=== PATIENT | male | born 1965 | race Caucasian/White ===

== ENCOUNTER 2022-10-17 10:07 | Emergency (ER) | payer OTHER, BC, SELFPAY ==
[2022-10-17] VITALS (11 sets, daily range): BP systolic 126–155; BP diastolic 66–97; PULSE 97–103; RESP 14–23; TEMP 36.6; O2SAT 94–99; BMI 51.6
--- NOTE | 2022-10-17 10:31 | DI.RAD.S_ITS ---
PROCEDURE: XR KNEE RT 3V INDICATIONS: fall TECHNIQUE: 3 views of the knee were acquired. COMPARISON: None. FINDINGS: Bones: ACL replacement hardware. Moderate degenerative changes, with particular joint space narrowing in the medial compartment. No displaced fracture or dislocation. Soft tissues: Wdez-nj-bjjogloj joint effusion. IMPRESSION: Moderate degenerative changes, particularly the medial compartment. ACL replacement hardware. If there is high concern for further derangement, consider MRI evaluation. Dictated by: Ubaldo Ngo M.D. on 10/17/2022 at 11:26 Approved by: Ubaldo Ngo M.D. on 10/17/2022 at 11:27
[2022-10-17 10:49] LABS: Add Manual Diff / Slide Review NO; Basophils Absolute Auto 100 /uL (0-100); Basophils Percent Auto 0.9 % (0-2); Eosinophils Absolute Auto 100 /uL (0-450); Eosinophils Percent Auto 1.4 % (2-4); Hematocrit 46.6 % (41-53); Hemoglobin 15.9 g/dL (13.5-17.5); Lymphocytes Absolute Auto 1100 /uL (1100-4500); Lymphocytes Percent Auto 19.1 % (25-40); Mean Corpuscular HGB Conc 34.1 % (30-36); Mean Corpuscular Hemoglobin 29.5 PG (26-34); Mean Corpuscular Volume 86.5 fL (80-100); Monocytes Absolute Auto 500 /uL (0-900); Neutrophils Absolute Auto 4100 /uL (1500-7000); Neutrophils Percent Auto 70.6 % (50-75); Platelet Count 213 X10^3/uL (150-400); Red Blood Cell Count 5.38 X10^6/uL (4.5-5.9); Red Cell Distribution Width 13.1 % (11.6-14.8); White Blood Cell Count 5.8 X10^3/uL (4.5-11.0)
[2022-10-17 10:55] LABS: INR 0.9 (0.9-1.3); Prothrombin Time 10.5 SECONDS (10.1-12.7)
[2022-10-17 10:57] LABS: PTT Partial Thromboplastin Tim 31 SECONDS (26-36)
[2022-10-17 11:00] LABS: Alanine Aminotransferase 47 IU/L (<50); Albumin 4.3 g/dL (3.5-5.0); Albumin Globulin Ratio 1.2 (1.0-2.8); Alkaline Phosphatase 130 U/L (38-126); Aspartate Aminotransferase 29 IU/L (17-59); BUN Creatinine Ratio 24.5 (6-22); Bilirubin Total 1.2 mg/dL (0.2-1.3); Blood Urea Nitrogen 13 mg/dL (9-20); Calcium 8.8 mg/dL (8.4-10.2); Carbon Dioxide 21 mmol/L (22-32); Chloride 101 mmol/L (98-107); Creatine Kinase 92 U/L (55-170); Estimated Glomerular Filt Rate > 60 mL/min (>60); Globulin 3.6 g/dL (1.7-4.1); Glucose 300 mg/dL (70-100); HEMOLYSIS 37 (0-50); Lipase 65 U/L (23-300); Magnesium 1.9 mg/dL (1.6-2.3); Potassium 4.3 mmol/L (3.4-5.1); Sodium 132 mmol/L (137-145); Total Protein 7.9 g/dL (6.3-8.2)
--- NOTE | 2022-10-17 11:07 | DI.RAD.S_ITS ---
PROCEDURE: XR CHEST 1V INDICATIONS: syncope TECHNIQUE: One view of the chest was acquired. COMPARISON: None. FINDINGS: Surgical changes and devices: None. Lungs and pleura: Low lung volumes limit evaluation. No dense consolidation or pleural effusion. Possible small nodular opacity at the right lung base. Mediastinum: Heart size is at the upper limit of normal. Bones and chest wall: No suspicious bony lesions. Overlying soft tissues appear unremarkable. IMPRESSION: No acute radiographic abnormality. Low lung volumes, limiting evaluation. Tiny nodular opacity at the right lung base, possibly a granuloma. Consider surveillance imaging. Dictated by: Ubaldo Ngo M.D. on 10/17/2022 at 11:32 Approved by: Ubaldo Ngo M.D. on 10/17/2022 at 11:33
[2022-10-17 11:12] LABS: Troponin I < 0.012 ng/mL (0.01-0.034)
[2022-10-17 11:18] LABS: D Dimer 521 ng/ml (<500)
--- NOTE | 2022-10-17 11:49 | DI.CT.S_ITS ---
PROCEDURE: CT HEAD/BRAIN WO CON INDICATIONS: syncope TECHNIQUE: Noncontrast 4.5 mm thick angled axial sections acquired from the foramen magnum to the vertex, with coronal and sagittal reformats. For radiation dose reduction, the following was used: automated exposure control, adjustment of mA and/or kV according to patient size. COMPARISON: None. FINDINGS: Image quality: Excellent. CSF spaces: Basal cisterns are patent. No extra-axial fluid collections. Ventricles are normal in size and shape. Brain: No midline shift. No intracranial masses or hemorrhage. Chaparro-white matter interface is normal. Skull and face: Calvarium and visualized facial bones are intact, without suspicious lesions. Sinuses: Mild maxillary sinus mucosal thickening. The mastoids are clear. IMPRESSION: 1. No acute intracranial abnormalities. Dictated by: Zaira Sahni M.D. on 10/17/2022 at 12:37 Approved by: Zaira Sahni M.D. on 10/17/2022 at 12:37
--- NOTE | 2022-10-17 14:27 | PC.NURSE ---
I called over to [facility] where we were able to get patient an appointment at 10 AM tomorrow (0940 check in) with Dr. Pate.
[2022-10-17] MEDS: KETOROLAC 30 MG/ML VIAL IM (14:29)
--- NOTE | 2022-10-17 20:33 | ED_ITS ---
HPI - Syncope <Tye Keane PA-C - Last Filed: 10/17/22 20:48> General Chief Complaint: Syncope Stated Complaint: 'blew out right knee' Time Seen by Provider: 10/17/22 11:07 Source: patient Mode of arrival: Ambulatory History of Present Illness HPI narrative: 56-year-old male with past medical history diabetes presents to the ED status post a syncopal episode that occurred yesterday. 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 Patient states that he lost consciousness only for a few seconds and was able to stand back up and walk after. Patient states that a little while later, his right knee started becoming more painful, it is painful to bear weight and walk today. Patient denies numbness, tingling, weakness. Patient denies fever, chills, chest pain, shortness of breath, abdominal pain, nausea, vomiting, dysuria. Patient states that he was diagnosed with diabetes, however he stopped taking his medication since his medications caused too many side effects including headaches. Patient states he has had a few other syncopal episodes in the last few years, however they happen infrequently such as 2 times a year. Patient denies any cardiac history. Related Data Home Medications Medication Instructions Recorded Confirmed No Known Home Medications 10/17/22 10/17/22 Allergies Allergy/AdvReac Type Severity Reaction Status Date / Time No Known Drug Allergies Allergy Verified 10/17/22 10:29 Review of Systems <Tye Keane PA-C - Last Filed: 10/17/22 20:48> Review of Systems ROS Unobtainable: All systems reviewed & are unremarkable except as noted in HPI and below Constitutional Constitutional: Denies chills, Denies fatigue, Denies fever(s), Denies frequent falls, Denies lethargy and Denies weakness Eyes Eyes: Denies change in vision, Denies eye discharge, Denies irritation and Denies loss of vision ENT Ears, Nose, Mouth, and Throat: Denies change in voice, Denies dizziness, Denies neck pain, Denies sore throat and Denies throat swelling Cardiovascular Cardiovascular: Denies chest pain, Reports syncope, Denies irregular heart rhythm, Denies lightheadedness, Denies palpitations, Denies dyspnea, Denies dyspnea on exertion and Denies orthopnea Respiratory Respiratory: Denies cough, Denies dyspnea, Denies dyspnea on exertion and Denies wheezing Gastrointestinal Gastrointestinal: Denies abdominal pain, Denies change in bowel habits, Denies diarrhea, Denies nausea and Denies vomiting Genitourinary Genitourinary: Denies hematuria, Denies flank pain, Denies urinary incontinence and Denies urinary urgency Musculoskeletal Musculoskeletal: Denies back pain, Denies muscle weakness, Denies neck pain, Denies numbness and Denies tingling Comments: Right Knee pain Integumentary/Breasts Skin/Breast: Denies pruritus, Denies erythema, Denies rash and Denies wounds Neurologic Neurologic: Denies behavioral changes, Denies confusion, Denies dizziness, Reports syncope, Denies frequent falls, Denies loss of vision, Denies numbness, Denies tingling and Denies weakness Psychiatric Psychiatric: Denies anxiety, Denies behavioral changes, Denies confusion, Denies depression, Denies homicidal ideation and Denies suicidal ideation Endocrine Endocrine: Denies fatigue, Denies flushing and Denies palpitations Hematologic/Lymphatic Hematologic/Lymphatic: Denies easy bruising Allergic/Immunologic Allergic/Immunologic: Denies urticaria, Denies throat swelling and Denies wheezing Patient History <Tye Keane PA-C - Last Filed: 10/17/22 20:48> Social History Smoking Status: Never smoker Smoking Status: Never smoker alcohol intake frequency: 0-2 drinks per day Substance Use Type: marijuana Exam <Tye Keane PA-C - Last Filed: 10/17/22 20:48> Narrative Exam Narrative: Const General:?cooperative, healthy appearing and comfortable [facility] Head:?normal to inspection Ears:?hearing grossly normal bilaterally Nose:?external nose normal Face and sinus:?normal facial exam and sinuses nontender Mouth:?oral mucosae normal Throat:?posterior oropharynx normal Eyes General:?appearance normal, both eyes and all related structures Neck Neck:?normal visual inspection and no lymphadenopathy noted Resp Effort & Inspection:?normal respiratory effort Auscultation:?clear to auscultation bilaterally Cardio Rate:?regular rate Rhythm:?regular rhythm Musculoskeletal Right knee appears mildly swollen, tender to touch. No erythema or deformities. There is full range of motion. Strength and sensation is intact. Patient is neurovascularly intact. Neuro General:?patient alert, patient awake and patient oriented x3 Initial Vital Signs Initial Vital Signs: Vital Signs Temperature 97.8 F 10/17/22 10:24 Pulse Rate 103 H 10/17/22 10:24 Respiratory Rate 18 10/17/22 10:24 Blood Pressure 155/97 H 10/17/22 10:24 Pulse Oximetry 95 10/17/22 10:24 Oxygen Delivery Method Room Air 10/17/22 10:24 <Samra Graham DO - Last Filed: 10/18/22 07:44> Initial Vital Signs Initial Vital Signs: Vital Signs Temperature 97.8 F 10/17/22 10:24 Pulse Rate 103 H 10/17/22 10:24 Respiratory Rate 18 10/17/22 10:24 Blood Pressure 155/97 H 10/17/22 10:24 Pulse Oximetry 95 10/17/22 10:24 Oxygen Delivery Method Room Air 10/17/22 10:24 Course <Tye Keane PA-C - Last Filed: 10/17/22 20:48> Orders Ordered: Discontinued Medications Aspirin (Aspirin 81 Mg Chew Tab) 324 mg PO NOW ONE Stop: 10/17/22 10:32 Last Admin: 10/17/22 12:39 Dose: Not Given Documented By: ISABELLA Ketorolac Tromethamine (Ketorolac 30 Mg/Ml Vial) 30 mg IM NOW ONE Stop: 10/17/22 14:21 Last Admin: 10/17/22 14:29 Dose: 30 mg Documented By: ERROL Vital Signs Vital signs: Vital Signs - 8 hr 10/17/22 12:35 10/17/22 12:36 10/17/22 12:36 Pulse Rate 101 H 100 H Respiratory Rate 21 17 Blood Pressure 146/90 H Pulse Oximetry 96 96 Oxygen Delivery Method 10/17/22 13:00 10/17/22 13:00 10/17/22 13:30 Pulse Rate 98 H Respiratory Rate 23 Blood Pressure 143/88 H 140/86 Pulse Oximetry 95 Oxygen Delivery Method 10/17/22 13:30 10/17/22 14:00 10/17/22 14:00 Pulse Rate 98 H 97 H Respiratory Rate 14 18 Blood Pressure 141/91 H Pulse Oximetry 96 98 Oxygen Delivery Method Room Air 10/17/22 14:30 10/17/22 14:30 Pulse Rate 101 H Respiratory Rate 20 Blood Pressure 153/94 H Pulse Oximetry 96 Oxygen Delivery Method Room Air <Samra Graham DO - Last Filed: 10/18/22 07:44> Orders Ordered: Discontinued Medications Aspirin (Aspirin 81 Mg Chew Tab) 324 mg PO NOW ONE Stop: 10/17/22 10:32 Last Admin: 10/17/22 12:39 Dose: Not Given Documented By: ISABELLA Ketorolac Tromethamine (Ketorolac 30 Mg/Ml Vial) 30 mg IM NOW ONE Stop: 10/17/22 14:21 Last Admin: 10/17/22 14:29 Dose: 30 mg Documented By: ERROL Vital Signs Vital signs: Vital Signs - 8 hr 10/17/22 12:35 10/17/22 12:36 10/17/22 12:36 Pulse Rate 101 H 100 H Respiratory Rate 21 17 Blood Pressure 146/90 H Pulse Oximetry 96 96 Oxygen Delivery Method 10/17/22 13:00 10/17/22 13:00 10/17/22 13:30 Pulse Rate 98 H Respiratory Rate 23 Blood Pressure 143/88 H 140/86 Pulse Oximetry 95 Oxygen Delivery Method 10/17/22 13:30 10/17/22 14:00 10/17/22 14:00 Pulse Rate 98 H 97 H Respiratory Rate 14 18 Blood Pressure 141/91 H Pulse Oximetry 96 98 Oxygen Delivery Method Room Air 10/17/22 14:30 10/17/22 14:30 Pulse Rate 101 H Respiratory Rate 20 Blood Pressure 153/94 H Pulse Oximetry 96 Oxygen Delivery Method Room Air MDM - Syncope <Tye Keane PA-C - Last Filed: 10/17/22 20:48> Lab Data 10/17/22 10:40 10/17/22 10:40 Labs: Lab Results 10/17/22 10/17/22 10/17/22 Range/Units 10:40 10:40 10:40 WBC 5.8 (4.5-11.0) X10^3/uL RBC 5.38 (4.5-5.9) X10^6/uL Hgb 15.9 (13.5-17.5) g/dL Hct 46.6 (41-53) % MCV 86.5 (80-100) fL MCH 29.5 (26-34) PG MCHC 34.1 (30-36) % RDW 13.1 (11.6-14.8) % Plt Count 213 (150-400) X10^3/uL Neut % (Auto) 70.6 (50-75) % Lymph % (Auto) 19.1 L (25-40) % [place] % (Auto) 8.0 (3-14) % Eos % (Auto) 1.4 L (2-4) % Baso % (Auto) 0.9 (0-2) % Neut # (Auto) 4100 (2658-2488) /uL Lymph # (Auto) 1100 (4837-7499) /uL [place] # (Auto) 500 (0-900) /uL Eos # (Auto) 100 (0-450) /uL Baso # (Auto) 100 (0-100) /uL PT 10.5 (10.1-12.7) SECONDS INR 0.9 (0.9-1.3) APTT 31 (26-36) SECONDS D-Dimer (<500) ng/ml Sodium 132 L (137-145) mmol/L Potassium 4.3 (3.4-5.1) mmol/L Chloride 101 (98-107) mmol/L Carbon Dioxide 21 L (22-32) mmol/L BUN 13 (9-20) mg/dL Creatinine 0.53 L (0.66-1.25) mg/dL Estimated GFR > 60 (>60) mL/min BUN/Creatinine Ratio 24.5 H (6-22) Glucose 300 H (70-100) mg/dL Calcium 8.8 (8.4-10.2) mg/dL Magnesium 1.9 (1.6-2.3) mg/dL Total Bilirubin 1.2 (0.2-1.3) mg/dL AST 29 (17-59) IU/L ALT 47 (<50) IU/L Alkaline Phosphatase 130 H (38-126) U/L Total Creatine Kinase 92 (55-170) U/L CK-MB (CK-2) TNP CK-MB (CK-2) Rel Index TNP Troponin I < 0.012 (0.01-0.034) ng/mL Total Protein 7.9 (6.3-8.2) g/dL Albumin 4.3 (3.5-5.0) g/dL Globulin 3.6 (1.7-4.1) g/dL Albumin/Globulin Ratio 1.2 (1.0-2.8) Lipase 65 (23-300) U/L 10/17/22 Range/Units 11:07 WBC (4.5-11.0) X10^3/uL RBC (4.5-5.9) X10^6/uL Hgb (13.5-17.5) g/dL Hct (41-53) % MCV (80-100) fL MCH (26-34) PG MCHC (30-36) % RDW (11.6-14.8) % Plt Count (150-400) X10^3/uL Neut % (Auto) (50-75) % Lymph % (Auto) (25-40) % [place] % (Auto) (3-14) % Eos % (Auto) (2-4) % Baso % (Auto) (0-2) % Neut # (Auto) (6753-8392) /uL Lymph # (Auto) (3845-7975) /uL [place] # (Auto) (0-900) /uL Eos # (Auto) (0-450) /uL Baso # (Auto) (0-100) /uL PT (10.1-12.7) SECONDS INR (0.9-1.3) APTT (26-36) SECONDS D-Dimer 521 H (<500) ng/ml Sodium (137-145) mmol/L Potassium (3.4-5.1) mmol/L Chloride (98-107) mmol/L Carbon Dioxide (22-32) mmol/L BUN (9-20) mg/dL Creatinine (0.66-1.25) mg/dL Estimated GFR (>60) mL/min BUN/Creatinine Ratio (6-22) Glucose (70-100) mg/dL Calcium (8.4-10.2) mg/dL Magnesium (1.6-2.3) mg/dL Total Bilirubin (0.2-1.3) mg/dL AST (17-59) IU/L ALT (<50) IU/L Alkaline Phosphatase (38-126) U/L Total Creatine Kinase (55-170) U/L CK-MB (CK-2) CK-MB (CK-2) Rel Index Troponin I (0.01-0.034) ng/mL Total Protein (6.3-8.2) g/dL Albumin (3.5-5.0) g/dL Globulin (1.7-4.1) g/dL Albumin/Globulin Ratio (1.0-2.8) Lipase (23-300) U/L Urine Dip Bedside Urine Glucose 1000 mg/dl Bedside Urine Bilirubin - Negative Bedside Urine Ketone +++ 80 Urine Specific [place] 1.020 Bedside Urine Occult Blood - Negative Bedside Urine pH 5.5 Bedside Urine Protein - Negative Bedside Urine Urobilinogen - Negative Bedside Urine Nitrite - Negative Bedside Urine Leukocytes - Negative Esterase MDM Narrative Medical decision making narrative: 56-year-old male with past medical history diabetes presents to the ED status post a syncopal episode that occurred yesterday. Concern for ACS versus arrhythmias versus vasovagal syncope versus fracture/dislocation versus intracranial bleeds versus PE versus other. Will obtain labs, troponin, EKG, chest x-ray, D-dimer, knee x-ray. Will give ketorolac for pain. Will reassess. X-ray with no fracture/dislocation. There is some nnbf-wi-[id number] joint effusion. CT head without acute findings. Chest x-ray shows an incidental finding of a tiny nodular opacity of the right lung base, possibly a granuloma but no other acute findings. Glucose 300. Remainder of the workup within ministerio l limits. Discussed findings with patient. Recommend continued use of ibuprofen or Tylenol, heat packs, Haroldo wraps for pain. Patient agrees to seek further evaluation and treatment for his blood sugars. An appointment was made for him at [address], appointment for 9:[address] Pate. ED return precautions were discussed with patient. Patient verbalized understanding. Medical records reviewed: Yes <Samra Graham, DO - Last Filed: 10/18/22 07:44> Lab Data Labs: Lab Results 10/17/22 10/17/22 10/17/22 Range/Units 10:40 10:40 10:40 WBC 5.8 (4.5-11.0) X10^3/uL RBC 5.38 (4.5-5.9) X10^6/uL Hgb 15.9 (13.5-17.5) g/dL Hct 46.6 (41-53) % MCV 86.5 (80-100) fL MCH 29.5 (26-34) PG MCHC 34.1 (30-36) % RDW 13.1 (11.6-14.8) % Plt Count 213 (150-400) X10^3/uL Neut % (Auto) 70.6 (50-75) % Lymph % (Auto) 19.1 L (25-40) % [place] % (Auto) 8.0 (3-14) % Eos % (Auto) 1.4 L (2-4) % Baso % (Auto) 0.9 (0-2) % Neut # (Auto) 4100 (1719-4962) /uL Lymph # (Auto) 1100 (0212-4151) /uL [place] # (Auto) 500 (0-900) /uL Eos # (Auto) 100 (0-450) /uL Baso # (Auto) 100 (0-100) /uL PT 10.5 (10.1-12.7) SECONDS INR 0.9 (0.9-1.3) APTT 31 (26-36) SECONDS D-Dimer (<500) ng/ml Sodium 132 L (137-145) mmol/L Potassium 4.3 (3.4-5.1) mmol/L Chloride 101 (98-107) mmol/L Carbon Dioxide 21 L (22-32) mmol/L BUN 13 (9-20) mg/dL Creatinine 0.53 L (0.66-1.25) mg/dL Estimated GFR > 60 (>60) mL/min BUN/Creatinine Ratio 24.5 H (6-22) Glucose 300 H (70-100) mg/dL Calcium 8.8 (8.4-10.2) mg/dL Magnesium 1.9 (1.6-2.3) mg/dL Total Bilirubin 1.2 (0.2-1.3) mg/dL AST 29 (17-59) IU/L ALT 47 (<50) IU/L Alkaline Phosphatase 130 H (38-126) U/L Total Creatine Kinase 92 (55-170) U/L CK-MB (CK-2) TNP CK-MB (CK-2) Rel Index TNP Troponin I < 0.012 (0.01-0.034) ng/mL Total Protein 7.9 (6.3-8.2) g/dL Albumin 4.3 (3.5-5.0) g/dL Globulin 3.6 (1.7-4.1) g/dL Albumin/Globulin Ratio 1.2 (1.0-2.8) Lipase 65 (23-300) U/L 10/17/22 Range/Units 11:07 WBC (4.5-11.0) X10^3/uL RBC (4.5-5.9) X10^6/uL Hgb (13.5-17.5) g/dL Hct (41-53) % MCV (80-100) fL MCH (26-34) PG MCHC (30-36) % RDW (11.6-14.8) % Plt Count (150-400) X10^3/uL Neut % (Auto) (50-75) % Lymph % (Auto) (25-40) % [place] % (Auto) (3-14) % Eos % (Auto) (2-4) % Baso % (Auto) (0-2) % Neut # (Auto) (2140-2871) /uL Lymph # (Auto) (1742-4380) /uL [place] # (Auto) (0-900) /uL Eos # (Auto) (0-450) /uL Baso # (Auto) (0-100) /uL PT (10.1-12.7) SECONDS INR (0.9-1.3) APTT (26-36) SECONDS D-Dimer 521 H (<500) ng/ml Sodium (137-145) mmol/L Potassium (3.4-5.1) mmol/L Chloride (98-107) mmol/L Carbon Dioxide (22-32) mmol/L BUN (9-20) mg/dL Creatinine (0.66-1.25) mg/dL Estimated GFR (>60) mL/min BUN/Creatinine Ratio (6-22) Glucose (70-100) mg/dL Calcium (8.4-10.2) mg/dL Magnesium (1.6-2.3) mg/dL Total Bilirubin (0.2-1.3) mg/dL AST (17-59) IU/L ALT (<50) IU/L Alkaline Phosphatase (38-126) U/L Total Creatine Kinase (55-170) U/L CK-MB (CK-2) CK-MB (CK-2) Rel Index Troponin I (0.01-0.034) ng/mL Total Protein (6.3-8.2) g/dL Albumin (3.5-5.0) g/dL Globulin (1.7-4.1) g/dL Albumin/Globulin Ratio (1.0-2.8) Lipase (23-300) U/L Urine Dip Bedside Urine Glucose 1000 mg/dl Bedside Urine Bilirubin - Negative Bedside Urine Ketone +++ 80 Urine Specific [place] 1.020 Bedside Urine Occult Blood - Negative Bedside Urine pH 5.5 Bedside Urine Protein - Negative Bedside Urine Urobilinogen - Negative Bedside Urine Nitrite - Negative Bedside Urine Leukocytes - Negative Esterase ECG Data Prior ECG tracings: not available for review Interpretation: [place]: Sinus rhythm rate of 95 OK 146 QRS 84 QTC 449. No acute ST elevation appreciated. No prior for comparison. Discharge Plan Departure Patient Disposition: Home Clinical Impression: Syncope Instructions: DI for Syncope in Adults (Fainting) Activity Restrictions/Additional Instructions: You were evaluated in the ED today for fainting and hurting her right knee yesterday. The CT head, chest x-ray, knee x-ray did not show any brain bleeds or fracture/dislocation. Your knee pain is likely due to a musculoskeletal sprain or strain that you sustained from the fall. You may wrap your knee, apply heat packs, take Tylenol and ibuprofen for your symptoms. Your labs shows your blood sugar is high at 300, it is very important that you follow-up with your primary care doctor for further evaluation and medications for blood sugar control. Your chest x-ray also showed a small nodule in the right lower lung, which also needs to be followed up by your PCP. Return to the ED if you experience any numbness, tingling, weakness, chest pain, shortness of breath. We have obtained an appointment for you at [address], appointment for 9:[address] Pate. Please make sure to keep that appointment. Prescriptions: No Action No Known Home Medications Stand Alone Forms: Patient Portal/API <Samra Graham, DO - Last Filed: 10/18/22 07:44> Cosign ED Attending Cosignature Attestation: I was immediately available in the department for consultation. Documentation h as been reviewed.
[2022-10-19 10:37] LABS: Labcorp Hemoglobin (Hb) A1c 14.2 % (4.8-5.6)
== END 2022-10-17 14:53 | disposition home or self-care (01) ==
PROVIDERS: Emergency Medicine; Pediatrics; Emergency Provider Student in an Organized Health Care Education/Training Program
DX: R55 Syncope and collapse (principal); S89.91XA Unspecified injury of right lower leg, initial encounter; R07.9 Chest pain, unspecified
CPT/HCPCS: 36415; 70450; 71045; 73562; 80053; 81003; 82550; 83036; 83690; 83735; 84484; 85025; 85379; 85610; 85730; 93005; 93010; 96372; 99284; J1885

== ENCOUNTER 2024-03-13 08:32 | Emergency (ER) | payer SELFPAY ==
[2024-03-13] VITALS (17 sets, daily range): BP systolic 147–177; BP diastolic 72–123; PULSE 88–99; RESP 18; TEMP 36.6; O2SAT 91–97; BMI 43.0
--- NOTE | 2024-03-13 08:52 | ED_ITS ---
HPI - General Adult General Chief complaint: Abdominal Pain Stated complaint: Left side lower pain Time Seen by Provider: 03/13/24 08:34 History of Present Illness HPI narrative: 58-year-old gentleman who does not see physicians he notes that he probably has COPD, high blood pressure, diabetes, high cholesterol is currently taking no medications. He presents with left-sided abdominal/flank pain that started this morning. He notes that he had a normal bowel movement yesterday. He has not complaining of fever, vomiting, chest pain, palpitations, dyspnea. Does have a slight cough and feels like he is ?full of air? and needs to burp. Related Data Previous Rx's Medication Instructions Recorded tramadol 50 mg tablet 50 mg PO TID PRN severe pain #30 10/18/22 tabs lisinopril 10 mg tablet 10 mg PO DAILY #90 tabs 02/06/23 metformin 500 mg tablet 500 mg PO BID diabetes #180 tabs 02/06/23 oxycodone-acetaminophen 5 mg-325 1 tab PO Q6H PRN pain #14 tabs 03/13/24 mg tablet tamsulosin 0.4 mg capsule (Flomax) 0.4 mg PO DAILY #14 caps 03/13/24 Allergies Allergy/AdvReac Type Severity Reaction Status Date / Time No Known Drug Allergies Allergy Verified 10/18/22 09:57 Review of Systems Review of Systems Narrative: Pertinent positive and negative findings as per HPI Patient History Medical History Hypertension Social History Smoking Status: Never smoker Smoking Status: Never smoker alcohol intake frequency: 0-2 drinks per day Substance Use Type: marijuana Exam Initial Vital Signs Initial Vital Signs: Vital Signs Pulse Rate 98 H 03/13/24 08:39 Blood Pressure 177/110 H 03/13/24 08:39 Pulse Oximetry 96 03/13/24 08:39 General: Morbidly obese, slight cough able to speak in full sentences, Able to give a complete and coherent history. HEENT: Moist mucous membranes, normal sclera with reactive pupils, Respiratory: Lungs are clear to auscultation, no wheezing no rales no rhonchi. Full and symmetrical air movement Cardiac: Regular rate and rhythm no murmurs no bruits Abdomen: Soft, mild distention, tenderness into the left lower quadrant and left flank without rebound or guarding. No evidence of acute abdomen. Rectal exam: Small amount of soft brown non guaiac-positive stool in the rectum only Skin: Warm and dry, no rashes Neurologic: Grossly neurologically intact with no obvious asymmetries or abnormalities Extremities: No trauma, well perfused Psych: Cooperative, appropriate insight and affect Course Orders Ordered: ED Orders 03/13/24 08:51 CT chest abd pel w con Stat 03/13/24 08:55 Complete Blood Count AUTO DIFF Stat Comprehensive Metabolic Panel Stat Lipase Stat 03/13/24 09:24 Urinalysis and Microscopic Stat Discontinued Medications Ketorolac Tromethamine (Ketorolac 30 Mg/Ml Vial) 15 mg IV NOW ONE Stop: 03/13/24 08:52 Last Admin: 03/13/24 09:13 Dose: 15 mg Documented By: TORI Vital Signs Vital signs: Vital Signs - 8 hr 03/13/24 08:39 03/13/24 08:39 03/13/24 08:57 Temperature Pulse Rate 98 H 95 H Respiratory Rate Blood Pressure 177/110 H Pulse Oximetry 96 97 Oxygen Delivery Method Oxygen Flow Rate 03/13/24 08:57 03/13/24 08:59 03/13/24 09:00 Temperature 97.9 F Pulse Rate 96 H Respiratory Rate 18 Blood Pressure 170/94 H 177/110 H 167/92 H Pulse Oximetry 97 Oxygen Delivery Method Room Air Oxygen Flow Rate 03/13/24 09:00 03/13/24 09:03 03/13/24 09:06 Temperature Pulse Rate 98 H 99 H Respiratory Rate Blood Pressure 157/81 H Pulse Oximetry 96 96 Oxygen Delivery Method Oxygen Flow Rate 03/13/24 09:16 03/13/24 09:26 03/13/24 09:30 Temperature Pulse Rate 96 H 96 H Respiratory Rate Blood Pressure 156/106 H Pulse Oximetry 96 91 Oxygen Delivery Method Oxygen Flow Rate 03/13/24 10:00 03/13/24 10:01 03/13/24 10:01 Temperature Pulse Rate 99 H 98 H Respiratory Rate Blood Pressure 169/123 H Pulse Oximetry 94 93 Oxygen Delivery Method Oxygen Flow Rate 03/13/24 10:15 03/13/24 10:15 03/13/24 10:30 Temperature Pulse Rate 97 H 94 H Respiratory Rate Blood Pressure 148/82 H Pulse Oximetry 91 94 Oxygen Delivery Method Oxygen Flow Rate 03/13/24 10:30 03/13/24 10:46 03/13/24 10:46 Temperature Pulse Rate 95 H Respiratory Rate Blood Pressure 147/72 H 163/90 H Pulse Oximetry 93 Oxygen Delivery Method Oxygen Flow Rate 03/13/24 11:00 03/13/24 11:00 03/13/24 11:15 Temperature Pulse Rate 94 H 92 H Respiratory Rate Blood Pressure 166/90 H Pulse Oximetry 91 91 Oxygen Delivery Method Oxygen Flow Rate 03/13/24 11:15 03/13/24 12:45 Temperature Pulse Rate 88 Respiratory Rate 18 Blood Pressure 155/85 H 148/77 H Pulse Oximetry 94 Oxygen Delivery Method Nasal Cannula Oxygen Flow Rate 2 Medical Decision Making Lab Data 03/13/24 08:55 03/13/24 08:55 Labs: Lab Results 03/13/24 03/13/24 Range/Units 08:55 09:24 WBC 5.2 (4.5-11.0) X10^3/uL RBC 5.62 (4.5-5.9) X10^6/uL Hgb 16.4 (13.5-17.5) g/dL Hct 48.6 (41-53) % MCV 86.6 (80-100) fL MCH 29.2 (26-34) PG MCHC 33.7 (30-36) % RDW 12.9 (11.6-14.8) % Plt Count 213 (150-400) X10^3/uL Neut % (Auto) 70.2 (50-75) % Lymph % (Auto) 19.0 L (25-40) % Freestone % (Auto) 8.0 (3-14) % Eos % (Auto) 1.6 L (2-4) % Baso % (Auto) 1.2 (0-2) % Neut # (Auto) 3600 (2498-3480) /uL Lymph # (Auto) 1000 L (1661-8432) /uL Freestone # (Auto) 400 (0-900) /uL Eos # (Auto) 100 (0-450) /uL Baso # (Auto) 100 (0-100) /uL Sodium 135 L (137-145) mmol/L Potassium 4.2 (3.4-5.1) mmol/L Chloride 103 (98-107) mmol/L Carbon Dioxide 20 L (22-32) mmol/L BUN 15 (9-20) mg/dL Creatinine 0.76 (0.66-1.25) mg/dL Estimated GFR > 60 (>60) mL/min BUN/Creatinine Ratio 19.7 (6-22) Glucose 414 H (70-100) mg/dL Calcium 9.3 (8.4-10.2) mg/dL Total Bilirubin 1.0 (0.2-1.3) mg/dL AST 29 (17-59) IU/L ALT 41 (<50) IU/L Alkaline Phosphatase 119 (38-126) U/L Total Protein 7.7 (6.3-8.2) g/dL Albumin 4.5 (3.5-5.0) g/dL Globulin 3.2 (1.7-4.1) g/dL Albumin/Globulin Ratio 1.4 (1.0-2.8) Lipase 91 (23-300) U/L Urine Color Yellow Urine Appearance Clear Urine pH 6.0 (4.5-8.0) Ur Specific Donner 1.010 (1.000-1.035) Urine Protein Negative (Negative) Urine Glucose (UA) 3+ H (Negative) g/dL Urine Ketones Trace H (NEGATIVE) Urine Occult Blood Negative (Negative) Urine Nitrate Negative (Negative) Urine Bilirubin Negative (NEGATIVE) Urine Urobilinogen 0.2 (0.2) E.U./dL Ur Leukocyte Esterase Negative (NEGATIVE) Urine RBC None seen (0-5/HPF) Urine WBC None seen (0-5/HPF) Ur Squamous Epith Cells None seen (0-5/HPF) Urine Bacteria None seen (None) Ur Culture Indicated? Cult not indicated Vol Urine Centrifuged 10ml (spun) Imaging Data CT scan - abdomen/pelvis: Radiologist's Impression: PROCEDURE: CT CHEST ABD PEL W CON INDICATIONS: left LLQ and flank pain TECHNIQUE: After the administration of intravenous contrast, 5 mm thick sections acquired from the lung apices to the symphysis. 5 mm coronal and sagittal reformats were performed, with additional 7 mm MIP reformats through the lungs. For radiation dose reduction, the following was used: automated exposure control, adjustment of mA and/or kV according to patient size. COMPARISON: None. FINDINGS: Image quality: Excellent. CHEST: Lower Neck: No enlarged lymph nodes. Thyroid: No thyroid nodules which require sonographic follow up, per consensus guidelines. Axillae: No enlarged lymph nodes. Chest Wall: Unremarkable. Lungs and Pleura: No pneumothorax or pleural effusions. No consolidation or suspicious nodules. Heart: Heart size is normal. No pericardial effusion. Thoracic Vessels: The aorta and pulmonary arteries demonstrate normal size. Mediastinum and Brianne: No enlarged lymph nodes. Esophagus: No wall thickening. No hiatal hernia. ABDOMEN: Liver: No solid mass. Gallbladder: A single 2-3 mm dependent layering gallstones present at the gallbladder body/neck junction. This does not appear obstructive or associated with gallbladder wall inflammation. Biliary ducts: No biliary dilation. Pancreas: No ductal dilation. Spleen: Size is within normal limits. Adrenal Glands: No adrenal nodules. Kidneys and Ureters: No hydronephrosis on the right but there is mild left hydronephrosis and perinephric edema associated with the proximal ureteral 2 x 3 mm calculus best visualized on coronal re-formation imaging series 3, image 62. No solid mass. No complex renal cystic lesion which requires follow up. Stomach and Bowel: Normal colonic caliber, without significant wall thickening. Peritoneum: No abnormal intraperitoneal fluid. No free air. Ventral Wall: No significant ventral hernia. Abdominal Nodes: No retroperitoneal or mesenteric adenopathy by size criteria. Vessels: Aorta and inferior vena cava are normal in size. PELVIS: Pelvic Organs: Unremarkable. Bladder: No bladder wall thickening, accounting for underdistention. Pelvic Nodes: No enlarged lymph nodes. Miscellaneous: No inguinal hernias are seen. Bones: No aggressive osseous abnormality. IMPRESSION: 1. Mild hydronephrosis and proximal left hydroureter associated with a proximal ureteral 2 x 3 mm calculus, with associated perinephric edema and slight hypoenhancement of the left kidney. 2. Single 2 x 3 mm dependent layering gallstone within the otherwise normal appearing gallbladder as an incidental finding. Dictated by: Clemente El M.D. on 03/13/2024 at 10:48 MDM Narrative Medical decision making narrative: CC: Left lower quadrant and flank pain Complicating co-morbidities: Does not see a physician, likely multiple chronic medical issues not actively managed Data collected from: patient Medical records reviewed: ER visit in September of 2022 for syncopal episode is reviewed Differential considered: Diverticulitis, kidney stone, obstruction, Exam documented above, pertinent findings include: Patient appears uncomfortable does not have an acute abdomen but left lower quadrant and left flank are tender, no obvious obstipation, Lab Test results independently reviewed as above. Pertinent findings: CBC is unremarkable Chemistries show essentially normal renal function. Glucose is elevated at 414 ([id number] almost a year ago was 14.2), liver studies are unremarkable Lipase is reassuring Urine does not show evidence for bladder infectio Imaging studies independently reviewed: CT scan shows a 2-3 mm stone in the left ureter Treatments: Toradol given Discussion: Patient is feeling much better. No sign of infection, kidney failure, he does have a small kidney stone which explains much of his symptoms. Findings are reviewed with him along with anticipated course of recovery, use of tamsulosin until the stone has passed, pain medications and uses stool softeners to avoid constipation. Also clearly reviewed his chronic medical issues and strongly recommended he follow up with his primary care physician as soon as possible to get back on medications. There was no evidence that he needs additional imaging or hospitalization at this time. Questions are answered and he is discharged Discharge Plan Departure Patient Disposition: Home Clinical Impression: Kidney stone Instructions: DI for Kidney Stones Activity Restrictions/Additional Instructions: Thank you for coming in today Your workup was reassuring. No signs of infection. You do have a kidney stone on the left side. It is 2-3 mm and should pass by itself but I suspect that is the source of the pain. I am going to give you a prescription for tamsulosin, this can help stones pass a bit more effectively. This should be discontinued once the stone is out. Using 400 mg of ibuprofen (2 [id number] pills) and 1 Tylenol every 6 hours can be very helpful in controlling pain. For severe pain you can use 400 mg of ibuprofen and 1 Percocet. Percocet is a narcotic and will cause constipation it should be taken with a stool softener You do need to follow up with the primary care physician. You do have diabetes, you need your blood pressure addressed and you likely need your cholesterol addressed. If you find that you are having increasing pain or new concerns please feel free to return to the ER Prescriptions: New tamsulosin [Flomax] 0.4 mg capsule 0.4 mg PO DAILY Qty: 14 0RF Rx Instructions: discontinue after the stone has passed oxycodone-acetaminophen 5-325 mg tablet 1 tab PO Q6H PRN (Reason: pain) Qty: 14 0RF No Action lisinopril 10 mg tablet 10 mg PO DAILY Qty: 90 0RF Rx Instructions: APPT DUE -- PLEASE CALL TO SCHEDULE APPT WITH NEW PCP LAST. THANKS 02/06/23. metformin 500 mg tablet 500 mg PO BID Qty: 180 0RF Rx Instructions: APPT DUE -- PLEASE CALL TO SCHEDULE APPT WITH NEW PCP LAST. THANKS 02/06/23. tramadol 50 mg tablet 50 mg PO TID PRN (Reason: severe pain) Qty: 30 0RF Rx Instructions: Limit use as possible. Watch for sedation. Referrals: Adriano Lujan MD [Primary Care Provider] - Stand Alone Forms: Patient Portal/API
[2024-03-13 09:02] LABS: Add Manual Diff / Slide Review NO; Basophils Absolute Auto 100 /uL (0-100); Basophils Percent Auto 1.2 % (0-2); Eosinophils Absolute Auto 100 /uL (0-450); Eosinophils Percent Auto 1.6 % (2-4); Hematocrit 48.6 % (41-53); Hemoglobin 16.4 g/dL (13.5-17.5); Lymphocytes Absolute Auto 1000 /uL (1100-4500); Mean Corpuscular HGB Conc 33.7 % (30-36); Mean Corpuscular Hemoglobin 29.2 PG (26-34); Mean Corpuscular Volume 86.6 fL (80-100); Monocytes Absolute Auto 400 /uL (0-900); Neutrophils Absolute Auto 3600 /uL (1500-7000); Neutrophils Percent Auto 70.2 % (50-75); Platelet Count 213 X10^3/uL (150-400); Red Blood Cell Count 5.62 X10^6/uL (4.5-5.9); Red Cell Distribution Width 12.9 % (11.6-14.8); White Blood Cell Count 5.2 X10^3/uL (4.5-11.0)
[2024-03-13 09:13] LABS: Alanine Aminotransferase 41 IU/L (<50); Albumin 4.5 g/dL (3.5-5.0); Albumin Globulin Ratio 1.4 (1.0-2.8); Alkaline Phosphatase 119 U/L (38-126); Aspartate Aminotransferase 29 IU/L (17-59); BUN Creatinine Ratio 19.7 (6-22); Blood Urea Nitrogen 15 mg/dL (9-20); Calcium 9.3 mg/dL (8.4-10.2); Carbon Dioxide 20 mmol/L (22-32); Chloride 103 mmol/L (98-107); Estimated Glomerular Filt Rate > 60 mL/min (>60); Globulin 3.2 g/dL (1.7-4.1); Glucose 414 mg/dL (70-100); HEMOLYSIS < 15 (0-50); Lipase 91 U/L (23-300); Potassium 4.2 mmol/L (3.4-5.1); Sodium 135 mmol/L (137-145); Total Protein 7.7 g/dL (6.3-8.2)
[2024-03-13] MEDS: KETOROLAC 30 MG/ML VIAL 15 MG IV (09:13)
[2024-03-13 09:36] LABS: Appearance Urine UA CLEAR; Bilirubin Urine UA NEGATIVE (NEGATIVE); Color Urine UA YELLOW; Glucose Urine UA 3+ g/dL (Negative); Ketones Urine UA TRACE (NEGATIVE); Leukocyte Esterase Urine UA NEGATIVE (NEGATIVE); Nitrite Urine UA NEGATIVE (Negative); Occult Blood Urine UA NEGATIVE (Negative); Protein Urine UA NEGATIVE (Negative); Urobilinogen Urine UA 0.2 E.U./dL (0.2)
[2024-03-13 09:54] LABS: Bacteria Urine None Seen; Culture Indicated Urine Cult Not Indicated; RBC Urine None Seen (0-5/HPF); Squamous Epithelial Cell Urine None Seen (0-5/HPF); Urine Volume 10mL (spun); WBC Urine None Seen (0-5/HPF)
== END 2024-03-13 13:24 | disposition home or self-care (01) ==
PROVIDERS: Emergency Provider Emergency Medicine; PCP Pediatrics; Referring Provider Emergency Medicine
DX: N20.0 Calculus of kidney (principal)
CPT/HCPCS: 36415; 71260; 74177; 80053; 81001; 83690; 85025; 96374; 99284; J1885; Q9967